=== PATIENT | female | born 1985 | race Caucasian/White ===

== ENCOUNTER 2019-06-15 02:34 | Inpatient (IN) | payer BC, SELFPAY ==
[2019-06-15] MEDS: Lactated Ringers 1,000 ML 125 ML IV (03:00)
[2019-06-15] MEDS: Penicillin G POT. 5,000,000 UNITS in Normal Saline 100 ML 200 UNITS IVPB (03:05)
[2019-06-15 03:12] LABS: HGB 13.3 g/dL (12.0-15.5); Mean Corp. HGB Concentration 34.1 g/dL (32.0-36.0); Mean Corpuscular Hemoglobin 30.2 pg (27.0-33.0); Mean Corpuscular Volume 88.6 fL (80-95); Mean Platelet Volume 10.9 fL (8.0-11.0); Platelet Count 175 x1000/uL (130-400); RBC Distribution Width 13.2 % (11.7-14.6); White Blood Cell Count 7.69 k/cumm (4.4-10.8)
--- NOTE | 2019-06-15 03:26 | W.PM.HP.N ---
History of Present Illness Dana is a 34 yo at term (40 1/7) in active labor. No ROM, TYLER, ABD pain, visual changes. Good FMVT. Ctx onset ~midnight. Hx of 7-8# with rapid labors Hx GBS pos with all prior pregnancies and the current one. Non smoker, good partner support no substance use/abuse Homemaker,Homeschooler labs wnl per records O: Vitals per flowsheet - wnl alert, comfortable using nitrous lungs - clear cv s- reg, no murmur abd - soft non-tender inbetween ctx - firm with ctx vtx by fahad cervix - stretchy 8cm, intact, 0 station, vtx nst - category 1 A: Term multip in active labor GBS pos - candidate for prophy abx Low risk for Shoulders Maternal and wellbeing P: Expect Initiate Pen G 5 million unit load and 2.5 million q4 hrs IV Nitrous per maternal request Routine EFM, vitals S. Genereaux PFSH Social History Smoking/Tobacco Use Status: Never Meds Home Medications and Allergies Home Medications Medication Instructions Recorded Confirmed Type PNV cmb#95-ferrous fumarate-FA 1 ea PO DAILY 01/12/15 01/18/17 History Allergies Allergy/AdvReac Type Severity Reaction Status Date / Time No Known Allergies Allergy Unverified 01/18/17 12:13 Results Labs Result diagrams: 06/15/19 02:50 Labs: Laboratory Results - last 24 hr 06/15/19 02:50 WBC 7.69 RBC 4.40 Hgb 13.3 Hct 39.0 MCV 88.6 MCH 30.2 MCHC 34.1 RDW 13.2 Plt Count 175 MPV 10.9
--- NOTE | 2019-06-15 03:35 | W.PM.HP.N ---
PFSH Social History Smoking/Tobacco Use Status: Never Meds Home Medications and Allergies Home Medications Medication Instructions Recorded Confirmed Type PNV cmb#95-ferrous fumarate-FA 1 ea PO DAILY 01/12/15 01/18/17 History Allergies Allergy/AdvReac Type Severity Reaction Status Date / Time No Known Allergies Allergy Unverified 01/18/17 12:13 Results Labs Result diagrams: 06/15/19 02:50 Labs: Laboratory Results - last 24 hr 06/15/19 02:50 WBC 7.69 RBC 4.40 Hgb 13.3 Hct 39.0 MCV 88.6 MCH 30.2 MCHC 34.1 RDW 13.2 Plt Count 175 MPV 10.9
[2019-06-15] MEDS: Ibuprofen 600 MG TAB PO ×2 (10:26→21:51)
[2019-06-15] MEDS: Acetaminophen 325 MG TAB 650 MG PO ×2 (10:26→21:52)
[2019-06-16 07:02] LABS: HCT 35.8 % (36.0-46.0); HGB 11.9 g/dL (12.0-15.5); Mean Corp. HGB Concentration 33.2 g/dL (32.0-36.0); Mean Corpuscular Hemoglobin 29.9 pg (27.0-33.0); Mean Corpuscular Volume 89.9 fL (80-95); Mean Platelet Volume 10.1 fL (8.0-11.0); Platelet Count 144 x1000/uL (130-400); RBC 3.98 m/cumm (4.00-5.20); RBC Distribution Width 13.3 % (11.7-14.6); White Blood Cell Count 9.02 k/cumm (4.4-10.8)
[2019-06-16] MEDS: Acetaminophen 325 MG TAB 650 MG PO (09:15)
[2019-06-16] MEDS: Ibuprofen 600 MG TAB PO (09:15)
--- NOTE | 2019-06-17 07:46 | W.PM.HP.N ---
History of Present Illness Brief D/C note: Slept well, showered, doing all self care nursing well, lochia decreasing, minimal cramping taking vits O: Firm fundus at umb no edema distally h/h reasonable alert, comfortable lungs - celar cv s- reg, no murmur A: Term s/p Rhogam dosed will f/u re possibel factor v leiden in mother f/u wrc in 48 hrs call or seek care if questioins or problems S. Genereaux [facility] Social History Smoking/Tobacco Use Status: Never Meds Home Medications and Allergies Home Medications Medication Instructions Recorded Confirmed Type PNV cmb#95-ferrous fumarate-FA 1 ea PO DAILY 01/12/15 01/18/17 History Allergies Allergy/AdvReac Type Severity Reaction Status Date / Time No Known Allergies Allergy Unverified 06/15/19 04:37 Results Labs Result diagrams: 06/16/19 06:40 Labs: Laboratory Results - last 24 hr 06/16/19 06:40 Patient ABO/Rh B Negative Unit Expiration Date 01/05/2021 Product Lot # [id number]
== END 2019-06-17 12:36 | disposition home or self-care (01) | DRG 807 ==
PROVIDERS: Admitting Provider Family Medicine; PCP Family Medicine; Visit Provider Family Medicine
DX: O48.0 Post-term pregnancy (principal); Z37.0 Single live birth; Z3A.40 40 weeks gestation of pregnancy; O99.824 Streptococcus B carrier state complicating childbirth; Z87.59 Personal history of other complications of pregnancy, childbirth and the puerperium; Z67.21 Type B blood, Rh negative; O26.893 Other specified pregnancy related conditions, third trimester; D75.89 Other specified diseases of blood and blood-forming organs
CPT/HCPCS: 36415; 85027; 85461; 86850; 86900; 86901; 90384; 99222; NC; 86870; J2540; J2790

== ENCOUNTER 2022-03-20 12:33 | Inpatient (IN) | payer MEDICAID, SELFPAY ==
[2022-03-20] VITALS (12 sets, daily range): BP systolic 106–147; BP diastolic 58–74; PULSE 77–107; RESP 16; TEMP 36.6–36.7
[2022-03-20 13:07] LABS: MCH 29.6 pg (27.0-33.0); MCHC 33.3 % (32.0-36.0); MCV 89 fL (80-95); MPV 10.8 fL (8.0-11.0); Platelet Count 155 10^3/uL (130-400); RBC 4.39 10^6/uL (3.93-5.22); RDW 13.1 % (11.7-14.6); RDW-SD 42.5 fL; WBC 8.82 10^3/uL (4.4-10.8)
--- NOTE | 2022-03-20 13:14 | W.PM.OBHPL1 ---
Date of service: 03/20/22 Time of Service: 13:14 Assessment and Plan Assessment and plan (1) : Status: Acute Assessment and plan: Admit for with expectant mgmt. Acceed to Ashlee's wish for no IV and no IV ABX for GBS prophy (2) Positive GBS test: Assessment and plan: as above - pt declines IV abx OB-HPI Labor/Delivery History of Present Illness Reason for Visit: pre KAMLA Chief Complaint: Uterine Contractions; Suspected Labor. Comments: Dana and Kraig present with uterine ctx - onset ~8 am. Intact membranes, good mvmt. No TYLER, swelling, questions. Slept well overnight. Confirmed prior conversations re opting out of IV abx for GBS prophy. Instead plans to stay for 48 hr rule out post delivery. History of Present Narrative: Low risk for shoulders. No GDM - following sugars at home PP <95. RH neg - received Rhogam @ 28 weeks and subsequent antibody titers were low and declining No Htn Chronic lower ext vericosities kept at bay with compression hose. PFSH All Active Problems (Updated 03/20/22 @ 13:25 by Sergio Turk) (Acute) Medical History (Updated 03/20/22 @ 13:25 by Sergio Turk) Positive GBS test Social History Smoking/Tobacco Use Status: Never Smoking risk assessment performed?: Yes Meds Allergies and Home Medications Allergies Allergy/AdvReac Type Severity Reaction Status Date / Time No Known Allergies Allergy Unverified 06/15/19 04:37 Home Medications Medication Instructions Recorded Confirmed Type vit no.95-ferrous 1 ea PO DAILY 01/12/15 01/18/17 History fumarate 28 mg-folic acid 800 mcg tablet Exam Detailed Labor and Delivery Exam Dilation: 6 station: -2 Cervix position: mid Joe Score: Cervical Points Exam 0 1 2 3 Dilation Closed 1-2cm 3-4 cm 5-6cm Effacement 0-30% 40-50% 60-70% 80% Consistency Firm Medium Soft Station -3 -2 -1,0 +1,+2 Position Posterior Mid Anterior Amniotic Membrane Status: Intact Contraction Frequency(min): 3 Fetus A Heart Rate Baseline: 130 Monitor Accelerations: 15 X 15 Monitor Decelerations: None Variability: Moderate (6-25 BPM) Presentation: Vertex Categories: Category I Est. Weight: 3400 kg Assessment Note: Category 1 strip Additional findings Additional findings: Bright, comfortable, alert, peaceful. lungs - clear CVS - reg, no tachy abd - gravid 39 cm, non-tender, ctx q 3-4 min mod ext - baseline varicosities Skin - clear Risk Assessment Risks Reviewed Risks Reviewed Upon Admission: Yes
[2022-03-20 13:29] LABS: Source Nasal/Nares
--- NOTE | 2022-03-20 13:44 | NUR.NOTE ---
Per conversation with provider Dr. Turk and patient, this nurse in room. Unknown GBS status. Patient declines IV, declines antibiotics understands with be here for 48 hours for baby oberservation.
--- NOTE | 2022-03-20 14:00 | W.PM.OBNL1 ---
Date of service: 03/20/22 Time of Service: 14:00 Objective Temp Pulse Resp BP 36.7 C 87 16 118/60 03/20/22 12:53 03/20/22 13:24 03/20/22 12:53 03/20/22 13:24 Laboratory Results WBC 8.82 10^3/uL (4.4-10.8) 03/20/22 12:55 RBC 4.39 10^6/uL (3.93-5.22) 03/20/22 12:55 Hgb 13.0 g/dL (11.2-15.7) 03/20/22 12:55 Hct 39.0 % (36.0-46.0) 03/20/22 12:55 MCV 89 fL (80-95) 03/20/22 12:55 MCH 29.6 pg (27.0-33.0) 03/20/22 12:55 MCHC 33.3 % (32.0-36.0) 03/20/22 12:55 RDW 13.1 % (11.7-14.6) 03/20/22 12:55 Plt Count 155 10^3/uL (130-400) 03/20/22 12:55 MPV 10.8 fL (8.0-11.0) 03/20/22 12:55 COVID-19 Source Nasal/Nares 03/20/22 13:00 Patient ABO/Rh B Negative 03/20/22 12:55 Antibody Screen POSITIVE 03/20/22 12:55 Subjective Interval history since last seen: Peaceful, focussed, mix of nitrous, up to BR, partner support allowing her to tolerate labor thus far. Intact membranes, good mvmt. Feeling some vag pressure. Good PO intake. O: 9 cm/90%/1+/vtx/bulging bag with ctx scant edema, non-tender abd Lab just called and shared her COVID screen came back positive A: Excellent cervical change and labor progress. Sx free COVID pos P: Expect Routine PPE precautions S. Genereaux Results Hemoglobin/Hematocrit: Hgb 13.0 g/dL (11.2-15.7) 03/20/22 12:55 Hct 39.0 % (36.0-46.0) 03/20/22 12:55
[2022-03-20 14:07] LABS: COVID-19 PCR POSITIVE (Negative)
--- NOTE | 2022-03-20 15:02 | OBVDS_ITS ---
Date of service: 03/20/22 Time of Service: 15:02 OB Labor/ Delivery Information Baby A Delivery Delivery Method: Spontaneaous Presentation: Cephalic Cephalic Position: Vertex Vertex Position: Left Occipital Anterior Cord Description-Baby A: 3 Vessels Amniotic Fluid: Clear Estimated Blood Loss: 250 cc Infant Complications: none Note: Maternal composure = impressive. SROM clear - began pushing - 10-15 min later crowned OA. Loose nuchal cord - reduced. Shoulders and Body rapidly followed [place], spont resp, vigorous - to mat abd Delayed cord clamping. Promptly firm fundus with easy delivery of intact placenta ~10 min post delivery. Intact, central 3 V cord. Inspection of perineum and urethral meatus yielded no trauma or lacs EBL ~250 cc [id number] right off and continuous. Providers Doctor: Sergio Turk Nurse: Bird Soria Other: Rahel Oliver Labor/Delivery Information Number of Babies in Womb: 1 Steroids Given: None Group Beta Strep: Not Done Blood Type: B- Varicella Immunity: Not Tested Shoulder Dystocia: No Stages of Labor Onset of Labor Date: 03/20/22 Onset of Labor Time: 08:00 ROM Baby A: 03/20/22 ROM Baby A: 14:38 Delivery Date-Baby A: 03/20/22 Delivery Time-Baby A: 14:40 Placenta Delivery Date-Baby A: 03/20/22 Placenta Delivery Time-Baby A: 14:46 Labor-Stage 3 Duration: 6 minutes Total Length of Labor-Baby A: 6 hours and 40 minutes Placenta Status: Delivered Baby A Infant Gender: Male Gestational Status: Term (39-41.6 wks) Gestational Age in Weeks/Days: 38 Weeks and 6 Days Score-1 Minute Interval(Baby A) Heart Rate-1 minute: 100 BPM or Greater Respiratory Effort- 1 minute: Spontaneous/Strong Cry Muscle Tone-1 minute: Active Movement Reflex Response-1 minute: Prompt Response Color-1 minute: Bluish Hands or Feet Total Score-1 minute: 9 Score-5 Minute Interval(Baby A) Heart Rate- 5 minute: 100 BPM or Greater Respiratory Effort-5 minute: Spontaneous/Strong Cry Muscle Tone-5 minute: Active Movement Reflex Response-5 minute: Prompt Response Color-5 minute: Bluish Hands or Feet Total Score- 5 minute: 9
--- NOTE | 2022-03-20 15:08 | HPE_ITS ---
Date of service: 03/20/22 Time of Service: 15:08 Assessment and Plan Assessment and plan (1) : Status: Acute Assessment and plan: Given likely GBS pos (not tested) will watch for 48hrs Maternal tested pos for COVID - another reason to watch closely Encourage/support Check blood type to know re maternal need for Rhogam Exam General Apperance Notable Details: Bright, pink, spont easy resp effort Lusty cry Lungs - clear CVS - reg, no murmur suckling at L breast abd - soft, non tender, nl umb insertion testes descended times two - nl male phallus skin - clear font open and flat, no over riding suture lines 9/9 Delivery Delivery Info Gestational Age in Weeks/Days: 38 Weeks and 6 Days Gestational Status: Term (39-41.6 wks) Infant Gender: Male Type of Delivery: Vaginal Delivery Date-Baby A: 03/20/22 Infant Delivery Time-Baby A: 14:40 Presentation: Cephalic Cephalic Position: Vertex Vertex Position: Left Occipital Anterior Breech Position: N/A Number of Cord Vessels: 3 Amniotic Fluid Color: Clear Born En Route: No Shoulder Dystocia: No Vacuum Assisted Delivery: N/A Forcep Assisted Delivery: N/A Delivery Outcome: Liveborn -1 Minute Interval Heart Rate-1 minute: 100 BPM or Greater Respiratory Effort- 1 minute: Spontaneous/Strong Cry Muscle Tone-1 minute: Active Movement Reflex Response-1 minute: Prompt Response Color-1 minute: Bluish Hands or Feet Total Score-1 minute: 9 -5 Minute Interval Heart Rate- 5 minute: 100 BPM or Greater Respiratory Effort-5 minute: Spontaneous/Strong Cry Muscle Tone-5 minute: Active Movement Reflex Response-5 minute: Prompt Response Color-5 minute: Bluish Hands or Feet Total Score- 5 minute: 9 Maternal History Maternal Medical History Maternal History Summary Note: Late to care (27 weeks) Diabetes: NEGATIVE FOR Hypertension: NEGATIVE FOR Heart disease: NEGATIVE FOR Auto-immune disorder: NEGATIVE FOR Kidney disease/UTI: NEGATIVE FOR Neurologic/epilepsy: NEGATIVE FOR Psychiatric: NEGATIVE FOR Depression/ depression: NEGATIVE FOR Hepatitis/liver disease: NEGATIVE FOR Varicosities/phlebitis: NEGATIVE FOR Thyroid dysfunction: NEGATIVE FOR Trauma/domestic violence: NEGATIVE FOR History of blood transfusions: NEGATIVE FOR D (Rh) Sensitized: NEGATIVE FOR Pulmonary (e.g.,TB,Asthma): NEGATIVE FOR Seasonal allergies: NEGATIVE FOR Drug/latex allergies/reactions: NEGATIVE FOR Breast: NEGATIVE FOR Vascular Physician surgery: NEGATIVE FOR Operations/hospitalizations: NEGATIVE FOR Anesthetic complications: NEGATIVE FOR History of abnormal pap: NEGATIVE FOR Uterine anomaly/yolanda: NEGATIVE FOR Infertility: NEGATIVE FOR Anti-retroviral treatment: NEGATIVE FOR Relevant family history: NEGATIVE FOR Genetic History Patients age 35 years or older as of [place]: Yes Thalassemia (Citizen Of [place], Danish, Mediterranean, or Black: No Congenital Heart Defect: No Neural Tube Defect (Meningomyelocele, Spina Bifida, or Ancen: No Down Syndrome: No Jose Miguel-Sachs (Ashkenazi Islam, Cajun, [place]an [place]): No Brad Disease (Ashkenazi Islam): No Familial Dysautonomia (Ashkenazi Islam): No Sickle Cell Disease or Trait (): No Muscular Dystrophy: No Cystic Fibrosis: No Delta's Chorea: No Mental Retardation/Autism: No Other inherited genetic or chromosomal disorder: No Maternal Metabolic Disorder (EG,TYPE 1 Diabetes, PKU): No Patient or baby's father had a child with defects: No Recurrent loss or a stillbirth: No Maternal Information Maternal History Age: 37 : 7 Para: 5 Expected Date of Delivery: 03/28/22 Number of Babies in Womb: 1 Gestational Age in Weeks/Days: 38 Weeks and 6 Days Infant Delivery Date-Baby A: 03/20/22 Maternal Labs Group Beta Strep Not Done Rubella Hepatitis B Hepatitis C Antibody Blood Type B- Antibody Screen HIV Syphillis Gonorrhea Chlamydia Varicella Immunity results in office along with all PN labs Labor/Delivery Information Labor Anesthesia: None Attempted: No Maternal Medications Steroids Given: None
[2022-03-20] MEDS: Dibucaine 1% 28 GM TUBE TP (16:17)
[2022-03-20] MEDS: Hamamelis Leaf/Glycerin 100 EACH BOX PR (16:18)
[2022-03-20] MEDS: Ibuprofen 600 MG TAB PO (16:19)
[2022-03-21 01:01] VITALS: BP 120/70; PULSE 82; RESP 17; TEMP 37.2; O2SAT 99
[2022-03-21] MEDS: Acetaminophen 325 MG TAB 650 MG PO ×2 (01:01→08:28)
[2022-03-21] MEDS: Ibuprofen 600 MG TAB PO ×2 (01:01→08:28)
[2022-03-21 08:47] VITALS: BP 125/74; PULSE 75; RESP 18; TEMP 36.4
--- NOTE | 2022-03-21 15:55 | W.PM.OBPNV1 ---
Date of service: 03/21/22 Time of Service: 15:56 Subjective Subjective Interval history: Off to terrific start. BF/suck/lathc all good. No Covid sx dec lochia showered, doing all self care no depression, anxiety Exam Physical Exam Vital signs: Temp Pulse Resp BP Pulse Ox 36.4 C L 75 18 125/74 99 03/21/22 08:47 03/21/22 08:47 03/21/22 08:47 03/21/22 08:47 03/21/22 01:01 Constitutional Comments: bright, alert, comfortable Firm fundus at umb scant edema distally - baseline lungs - clear CVS - reg, no murmur no breast tenderness Results Hemoglobin/Hematocrit: Hgb 13.0 g/dL (11.2-15.7) 03/20/22 12:55 Hct 39.0 % (36.0-46.0) 03/20/22 12:55 Abnormal Lab Findings: Abnormal Labs 03/20/22 13:00 SARS-CoV-2 (PCR) POSITIVE A* Additional Findings Results: plan: Cont BF support - d/c to home in 24 hrs when infant able (48 hr rule out) No COVID sx or issues Long discussion re Circ pros/cons - gram present - Dad weighted in yesterday Dana freely soigned consent form and will try to perform late morning 03/22
--- NOTE | 2022-03-21 16:02 | W.NBPROGRESS ---
Date of service: 03/21/22 Time of Service: 16:02 Subjective Note Off to terrific start with BF and suck/latch Parents planning Circ - ideally tomorrow when Jarett is here Weight Assessment Weight Change: weight 3430 g Weight 69.4 kg Exam General Apperance Notable Details: Bright, alert, eyes closed font open, soft, flat, nl sutres no jaundice nl breast buds strong suck, nl sae, grasp lungs - clear cvs - reg, no murmur abd - flat, soft, no masses, non tender neg hip click pinna - nl set intact sopft and hard palate nl fem pulses ,moving all 4 nl male genetalia - descended testes times two small stork bite post neck nl straight spine wt stable, patent anus, mec diapers, wet nappies need to get eye exam when open A: healthy male circ consent reviewd/counselling done - Mom freely signed no evidence GBS sepsis - stable exam and vitals P: Home 03/22 with circ prior cont BF support PKU done - further NB screene planned prior to d/c. S. Genereaux I&O Intake/Output Totals 24 Hours: 03/20/22 03/20/22 03/21/22 03/21/22 11:59 23:59 11:59 23:59 Output Total 500 / 500 800 / 800 Balance -500 / -500 -800 / -800 Output: Urine 500 / 500 800 / 800 Other: Urine Color Straw Yellow Urine Appearance Clear Urine Odor None Voiding Methods Toilet Weight 69.4 kg
[2022-03-21 21:14] VITALS: BP 97/60; PULSE 84; RESP 16; TEMP 36.6; O2SAT 97
[2022-03-22 07:40] VITALS: BP 96/55; PULSE 78; RESP 16; TEMP 36.8
--- NOTE | 2022-03-22 15:04 | W.PM.OBDISCH ---
Date of service: 03/22/22 Time of Service: 15:04 DS: Diagnosis Discharge Diagnosis (1) : Status: Acute (2) Lab test positive for detection of COVID-19 virus: Status: Acute Discharge Plan Disposition Patient Disposition: Home Condition: Good Discharge Details Reason For Visit: Labor Admit Date/Time: 03/20/22 12:33 Admit Provider: Michael Batista Attending Provider: Michael Batista Primary Care Provider: Sergio Turk Hospital Course Hospital Course: Dana presented in active labor. Delivered liveborn male via over intact perineum without complications. See delivery note for details. course was uneventful. She did note some varicosities that had thrombosed during . No edema. Varicosities are very superficial. Recommended warm compresses. She is eating and drinking well, mood is good. She was found to be positive on PCR for COVID 19. She was and remains asymptomatic. Home Meds and New Rx's Prescriptions: No Action PNV cmb#95-ferrous fumarate-FA 1 EACH tablet 1 ea PO DAILY Discharge Instructions Activity:: Activity as Tolerated Equipment/Supplies:: No Equipment Needed Diet:: As Tolerated Discharge Orders Discharge Orders: Discharge Order (Routine); Ordered 03/22/22 Ordered By: Sherrie Jauregui OB:DS Summary Summary Vaginal Delivery Method: Spontaneaous Episiotomy Description: None Laceration Description: None Laceration Extension: N/A Contraception Discussed Contraception Discussed: Yes Contraceptive Plan: Not planning to use, [place] Gender-Baby A: Male weight: 3430 g Status at Discharge Functional status at discharge: independent ambulation Overall status at discharge: patient is back to baseline Mental Status: mental status grossly normal Speech and Movement: speech and movement normal Mood: congruent mood Affect: normal affect Exam Physical Exam Vital signs: Temp Pulse Resp BP Pulse Ox 36.8 C 78 16 96/55 L 97 03/22/22 07:40 03/22/22 07:40 03/22/22 07:40 03/22/22 07:40 03/21/22 21:14 Constitutional Constitutional: no acute distress Respiratory Exam Respiratory Exam: Normal Fundal Exam Fundus: Below Umbilicus and Firm Extremities Exam Extremity Exam: Other (superficial varicosities with areas of firmness); negative Edema PFSH All Active Problems (Updated 03/22/22 @ 16:11 by Sherrie Jaurgeui) Lab test positive for detection of COVID-19 virus (Acute) [place] (Acute) (Acute) Medical History (Updated 03/22/22 @ 16:11 by Sherrie Jauregui) Positive GBS test Social History Smoking/Tobacco Use Status: Never Smoking risk assessment performed?: Yes Alcohol Intake: never Drug use: Never Substance use type: does not use History History 7 Para 5 Hx # Term Pregnancies Multiple births Hx # Pregnancies Ectopic pregnancies AB induced Hx Number of Living Children AB spontaneous DS: Data Vitals/I&O Vitals and I&O: Vital Signs Temperature 36.8 C 03/22/22 07:40 Pulse 78 03/22/22 07:40 Pulse Rhythm Regular 03/22/22 07:40 Respiratory Rate 16 03/22/22 07:40 Respiratory Depth Normal 03/21/22 20:04 Blood Pressure 96/55 L 03/22/22 07:40 Blood Pressure Mean 68 03/22/22 07:40 Pulse Oximetry 97 03/21/22 21:14 Oxygen Delivery Method Room Air 03/20/22 12:53 Oxygen Flow Rate 0 03/20/22 12:53 Pain Level 3 03/20/22 16:19 Intake & Output 03/21/22 03/22/22 03/22/22 23:59 11:59 23:59 Output Total 800 / 1600 Balance -800 / -1600 Output: Urine 800 / 1600 Data Completed and Pending Labs on day of discharge: Labs from last 24 hours 03/22/22 03/20/22 13:15 12:55 Patient ABO/Rh B Negative Antibody Screen POSITIVE Antibody Identification See Comments Screen Pending Rhogam Unit Number [id number] Unit Expiration Date 11/26/23 Product Lot # [id number]
== END 2022-03-22 18:05 | disposition home or self-care (01) | DRG 805 ==
PROVIDERS: Admitting Provider Family Medicine; PCP Family Medicine; Visit Provider Family Medicine
DX: O98.52 Other viral diseases complicating childbirth (principal); U07.1 COVID-19; Z37.0 Single live birth; O36.0930 Maternal care for other rhesus isoimmunization, third trimester, not applicable or unspecified; O99.824 Streptococcus B carrier state complicating childbirth; Z3A.38 38 weeks gestation of pregnancy
CPT/HCPCS: 36415; 85027; 85461; 86850; 86900; 86901; 87635; 90384; 86870; J2790

== ENCOUNTER 2024-08-08 04:52 | Inpatient (IN) | payer MEDICAID, SELFPAY ==
[2024-08-08] VITALS (25 sets, daily range): BP systolic 107–147; BP diastolic 55–83; PULSE 71–121; RESP 16–17; TEMP 35.7–37; O2SAT 98–99
--- NOTE | 2024-08-08 05:25 | HPE_ITS ---
Date of service: 08/08/24 Time of Service: 05:27 Assessment and Plan Assessment and plan (1) : Status: Acute Assessment and plan: Grand multip () at 39+1 EGA, here following SROM at home. complicated by somewhat limited care -- late presentation to care in 3rd trimester, declined anatomy screen. Reassuring /maternal status on presentation to L+D, without organized contractions. Given grand multip status and history of precipitous labor, as well as SROM, will admit to L+D for labor. - routine antepartum care - intermittent monitoring - Rh negative- will need PP RhIg. Hx anti-D antibodies PRIOR , neg antibody screen this - GBS unknown: Patient declines screen. Will plan on at minimum 48h monitoring following delivery - Counseled patient regarding increased risk of PPH given grand multip status and recommendation for IV in place/saline lock during labor. Patient declines at this time. - Intake labs drawn--as screens incomplete, will add on HIV, RPR, Hep B, Rubella screens as able (2) Grand multipara in labor: Status: Acute Assessment and plan: As above (3) Rh negative state in antepartum period: Status: Acute Assessment and plan: Received RhIg 06/13 in [place]. Antibody negative this . - Plan for RhIG OB-HPI Labor/Delivery History of Present Illness Reason for Visit: term labor Chief Complaint: Uterine Contractions; Suspected Rupture of Membranes , Associ ated Signs and Symptoms of Suspected ROM: Patient woke up around 1am as she had started leaking fluid, clear. Still leaking on arrival to +D. ; Maternal Discomfort , Associated Signs and Symptoms of Maternal Discomfort: Intermittent cramping, intermittent contractions.. Comments: 39 yo at 39+1 presenting to L+D following SROM. Last office check 08/07 AM; /-3. Per Dana, she felt comfortable at home yesterday without scattered cramping but no regular painful contractions. Went to sleep and woke up around 1am as her water had broken. Was still not having regular contractions; but started to feel more uncomfortable around 4AM and decided to come to the hospital with her , Jarett. Had scattered uncomfortable contractions in the car coming up. She has still been leaking fluid consistently. No VB. Regular FM. Current : Complicated by: late presentation to care 3T, mother is grand multip, Rh negative (received Rhogam 3T). Otherwise uncomplicated . Dating via LMP=3T US measurements in office; patient declined full anatomy scan this . Dana declined GBS screening during and anticipates at least 48h of monitoring in hospital following delivery. OB labs: blood type B negative, antibody negative (has a history of anti-D antibodies prior pregnancies, negative screen this ). 1HGTT WNL. GC/chlamydia and UCx neg. Most recent HIV, Hep B, Rubella and RPR screens were 2021 and WNL. Maternal medical history: Grand multip, history of anti-D antibodies as above, and Factor V Leiden deficiency (diagnosed via genetic screening after relatives diagnosed, no patient history of VTE). 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 Social History Smoking/Tobacco Use Status: Never Smoking risk assessment performed?: Yes Alcohol Intake: never Drug use: Never Substance use type: does not use Housing: house Do you feel safe at home: Yes Do you feel safe in your relationship?: Yes History History 8 Para 6 Hx # Term Pregnancies Multiple births Hx # Pregnancies Ectopic pregnancies AB induced Hx Number of Living Children AB spontaneous 1 Meds Allergies and Home Medications Allergies Allergy/AdvReac Type Severity Reaction Status Date / Time No Known Allergies Allergy Unverified 06/15/19 04:37 Home Medications ?Medication ?Instructions ?Recorded ?Confirmed ?Type vit no.95-ferrous 1 ea PO DAILY 01/12/15 03/20/22 History fumarate 28 mg-folic acid 800 mcg tablet Exam Physical Exam Vital Signs Reviewed: Yes Detailed Labor and Delivery Exam Joe Score: Cervical Points Exam 0 1 2 3 Dilation Closed 1-2cm 3-4 cm 5-6cm Effacement 0-30% 40-50% 60-70% 80% Consistency Firm Medium Soft Station -3 -2 -1,0 +1,+2 Position Posterior Mid Anterior Fetus A Heart Rate Baseline: 130 Monitor Accelerations: Present Monitor Decelerations: None Variability: Moderate (6-25 BPM) Presentation: Cephalic Categories: Category I Date of Membrane Rupture: 08/08/24 Time of Membrane Rupture: 01:00 HEENT Exam HEENT Exam: Normal Neck Exam Neck Exam: Normal Respiratory Exam Respiratory Exam: Normal Detail Cardiovascular Exam Comments: Extremities WWP, peripheral pulses intact. Abdominal Exam Abdominal Exam: Normal Skin Exam Skin Exam: Normal Neurological Exam Neurological Exam: Normal Results Results Group Beta Strep: Not Done Lab Results: Rh negative. Neg antibody screen this with history of anti-D antibodies in 2021 . Hep C negative, GC/chlamydia negative. Group B strep testing declined by patient. labs NOT screened with current include Hep B, Rubella, HIV, RPR (last screened 2021 WNL). Risk Assessment Risk for Shoulder Dystocia Increased Risk?: No Risk for Post- Hemorrhage Initial: POSITIVE FOR: Grand Multiparity At Risk?: Yes Risks Reviewed Risks Reviewed Upon Admission: Yes
[2024-08-08 05:27] LABS: HCT 34.3 % (36.0-46.0); HGB 11.4 g/dL (11.2-15.7); MCH 29.1 pg (27.0-33.0); MCHC 33.2 % (32.0-36.0); MCV 88 fL (80-95); MPV 10.9 fL (8.0-11.0); Platelet Count 172 10^3/uL (130-400); RBC 3.92 10^6/uL (3.93-5.22); RDW 13.2 % (11.7-14.6); RDW-SD 41.3 fL; WBC 7.58 10^3/uL (4.4-10.8)
--- NOTE | 2024-08-08 10:23 | W.PM.OBNL1 ---
Date of service: 08/08/24 Time of Service: 10:00 Contractions Monitor Mode: External (CTX irregular, q6-10 minutes) Intensity: Mild Fetus A Heart Rate Baseline: 130 Presentation: Cephalic Variability: Moderate (6-25 BPM) Categories: Category I Accelerations: Present Decelerations: None Amniotic Membrane Status: Ruptured Assessment and Plan Assessment and plan (1) Grand multipara in labor: Status: Acute Assessment and plan: Patient comfortable; reassuring monitoring; however without organized, painful contractions. Ruptured x 9 hours after SROM at home. -continue intermittent monitoring -encourage ambulation, position changes with nursing - S/P SROM; continue routine vital checks, monitor for fevers -discussed with patient that, if labor not progressing, we would need to consider augmentation--especially given presence of ruptured membranes. Patient prefers to defer augmentation for now if possible--but expresses understanding. (2) : Status: Acute (3) Rh negative state in antepartum period: Status: Acute Objective Abnormal lab results 08/08/24 Range/Units 05:11 RBC 3.92 L (3.93-5.22) 10^6/uL Hct 34.3 L (36.0-46.0) % Temp Pulse Resp BP Pulse Ox 36.6 C 85 17 133/71 98 08/08/24 04:58 08/08/24 08:59 08/08/24 04:58 08/08/24 08:59 08/08/24 04:58 Laboratory Results WBC 7.58 10^3/uL (4.4-10.8) 08/08/24 05:11 RBC 3.92 10^6/uL (3.93-5.22) L 08/08/24 05:11 Hgb 11.4 g/dL (11.2-15.7) 08/08/24 05:11 Hct 34.3 % (36.0-46.0) L 08/08/24 05:11 MCV 88 fL (80-95) 08/08/24 05:11 MCH 29.1 pg (27.0-33.0) 08/08/24 05:11 MCHC 33.2 % (32.0-36.0) 08/08/24 05:11 RDW 13.2 % (11.7-14.6) 08/08/24 05:11 Plt Count 172 10^3/uL (130-400) 08/08/24 05:11 MPV 10.9 fL (8.0-11.0) 08/08/24 05:11 ABO/Rh B Negative 08/08/24 05:11 Antibody Screen POSITIVE 08/08/24 05:11 Antibody Identification Anti-D 08/08/24 05:11 Objective Narrative Objective Narrative: Confirmed cephalic via bedside ultrasound. Subjective Interval history since last seen: Dana doing well. Still very comfortable--no more uncomfortable contractions. Still leaking fluid, clear. Slept this morning and now up, would like to shower and start walking, moving. Results Hemoglobin/Hematocrit: Hgb 11.4 g/dL (11.2-15.7) 08/08/24 05:11 Hct 34.3 % (36.0-46.0) L 08/08/24 05:11 Abnormal Lab Findings: Abnormal Labs 08/08/24 05:11 RBC 3.92 L Hct 34.3 L Ultrasound OB Ultrasound for presentation. Indication: Check position. Position: ROT. Presentation: Cephalic. Exam complete. Point of Care Ultrasound Note: Point of care ultrasound for position. Cephalic.
[2024-08-08] MEDS: Calcium Carbonate *TUMS* 500 MG CHEW 1000 MG PO ×2 (11:15→16:33)
--- NOTE | 2024-08-08 17:19 | W.PM.OBNL1 ---
Date of service: 08/08/24 Time of Service: 17:19 Pelvic Exam Dilation: 7 Effacement (%): 80 station: -3 Cervix Position: mid Consistency: soft Vaginal Exam Presentation: Cephalic Contractions Contraction Frequency(min): q3min Contraction Duration(sec): 60 Intensity: Mild/Moderate Fetus A Monitor: External (US) Heart Rate Baseline: 130 Variability: Moderate (6-25 BPM) Categories: Category I Accelerations: Present Decelerations: None Amniotic Membrane Status: Ruptured Assessment and Plan Assessment and plan (1) : Status: Acute Assessment and plan: 39yo at 39+1, admitted following SROM at home, spontaneous labor. Dana continues to progress albeit slowly; ruptured for more than 12 hrs at this time. Overall feeling quite comfortable but with intermittent strong contractions. Desires nitrous for intermittent use. -continue labor; after discussion with patient will continue to defer labor augmentation at this time. Continues to progress. -continue intermittent monitoring -nitrous PRN for contraction pain - grand multip; increased PPH risk - Rh negative; will need PP rhogam - GBS unknown; plan for 48h stay PP for monitoring (2) Grand multipara in labor: Status: Acute (3) Rh negative state in antepartum period: Status: Acute Objective Abnormal lab results 08/08/24 Range/Units 05:11 RBC 3.92 L (3.93-5.22) 10^6/uL Hct 34.3 L (36.0-46.0) % Temp Pulse Resp BP Pulse Ox 36.8 C 86 16 142/77 H 99 08/08/24 17:01 08/08/24 12:54 08/08/24 12:54 08/08/24 12:54 08/08/24 12:54 Laboratory Results WBC 7.58 10^3/uL (4.4-10.8) 08/08/24 05:11 RBC 3.92 10^6/uL (3.93-5.22) L 08/08/24 05:11 Hgb 11.4 g/dL (11.2-15.7) 08/08/24 05:11 Hct 34.3 % (36.0-46.0) L 08/08/24 05:11 MCV 88 fL (80-95) 08/08/24 05:11 MCH 29.1 pg (27.0-33.0) 08/08/24 05:11 MCHC 33.2 % (32.0-36.0) 08/08/24 05:11 RDW 13.2 % (11.7-14.6) 08/08/24 05:11 Plt Count 172 10^3/uL (130-400) 08/08/24 05:11 MPV 10.9 fL (8.0-11.0) 08/08/24 05:11 ABO/Rh B Negative 08/08/24 05:11 Antibody Screen POSITIVE 08/08/24 05:11 Antibody Identification Anti-D 08/08/24 05:11 Subjective Interval history since last seen: Ping feeling well. Contractions becoming a bit more regular, intermittently painful but overall still quite comfortable. Still intermittently leaking clear fluid. No fevers/chills/nausea. Intermittent reflux. Results Hemoglobin/Hematocrit: Hgb 11.4 g/dL (11.2-15.7) 08/08/24 05:11 Hct 34.3 % (36.0-46.0) L 08/08/24 05:11 Abnormal Lab Findings: Abnormal Labs 08/08/24 05:11 RBC 3.92 L Hct 34.3 L
--- NOTE | 2024-08-08 20:33 | W.PM.OBNL1 ---
Date of service: 08/08/24 Time of Service: 20:34 Pelvic Exam Dilation: 10 Effacement (%): 90 station: -2 Cervix Position: mid Consistency: soft Vaginal Exam Presentation: Cephalic Comments: 10cm but with right-sided lip Contractions Monitor Mode: External Contraction Frequency(min): q3 minutes Contraction Duration(sec): 60 seconds Intensity: Moderate/Strong Fetus A Monitor: External (US) Presentation: Cephalic Variability: Moderate (6-25 BPM) Categories: Category II Characteristics: Tachycardia Accelerations: Present Decelerations: None Amniotic Membrane Status: Ruptured Assessment Note: Patient with tracing showing tachycardia to 160s--rate improved with repositioning to 140s. Cat II --> improved to Cat I. Assessment and Plan Assessment and plan (1) Grand multipara in labor: Status: Acute Assessment and plan: Still progressing, however persistent cervical lip. Tried 1-2 pushes; did not reduce. - continue labor; try repositioning to R side - CEFM; will keep monitors on given tachycardia - continue nitrous for analgesia with contractions - Rh negative; will need PP RhIg - Increased PPH risk; increased shoulder dystocia risks. Huddled/reviewed with staff. (2) : Status: Acute (3) Rh negative state in antepartum period: Status: Acute (4) Anti-D antibodies present: Status: Acute Objective Abnormal lab results 08/08/24 Range/Units 05:11 RBC 3.92 L (3.93-5.22) 10^6/uL Hct 34.3 L (36.0-46.0) % Temp Pulse Resp BP Pulse Ox 36.8 C 111 H 17 117/65 99 08/08/24 18:09 08/08/24 20:14 08/08/24 18:09 08/08/24 20:14 08/08/24 18:09 Laboratory Results WBC 7.58 10^3/uL (4.4-10.8) 08/08/24 05:11 RBC 3.92 10^6/uL (3.93-5.22) L 08/08/24 05:11 Hgb 11.4 g/dL (11.2-15.7) 08/08/24 05:11 Hct 34.3 % (36.0-46.0) L 08/08/24 05:11 MCV 88 fL (80-95) 08/08/24 05:11 MCH 29.1 pg (27.0-33.0) 08/08/24 05:11 MCHC 33.2 % (32.0-36.0) 08/08/24 05:11 RDW 13.2 % (11.7-14.6) 08/08/24 05:11 Plt Count 172 10^3/uL (130-400) 08/08/24 05:11 MPV 10.9 fL (8.0-11.0) 08/08/24 05:11 ABO/Rh B Negative 08/08/24 05:11 Antibody Screen POSITIVE 08/08/24 05:11 Antibody Identification Anti-D 08/08/24 05:11 Subjective Interval history since last seen: Patient feeling more pressure--wants to push. More uncomfortable with contractions. Results Hemoglobin/Hematocrit: Hgb 11.4 g/dL (11.2-15.7) 08/08/24 05:11 Hct 34.3 % (36.0-46.0) L 08/08/24 05:11 Abnormal Lab Findings: Abnormal Labs 08/08/24 05:11 RBC 3.92 L Hct 34.3 L
[2024-08-08] MEDS: Oxytocin 10 UNITS/ML VIAL IM (20:40)
--- NOTE | 2024-08-08 21:19 | W.OBDELIVERY ---
Date of service: 08/08/24 Time of Service: 21:19 OB Labor/ Delivery Information Baby A Delivery Delivery Method: Spontaneaous Presentation: Cephalic Cephalic Position: Vertex Vertex Position: Left Occipital Anterior Cord Description-Baby A: 3 Vessels Amniotic Fluid: Clear Estimated Blood Loss: 200 cc Delivery Outcome: Liveborn Infant Transferred: Remains with Mother Providers Doctor: Nayeli Anthony Gyroscope Technician: Nayeli Anthony Nurse: Rahel Rivers Nurse: Aleksandra Nuñez Labor/Delivery Information Number of Babies in Womb: 1 Steroids Given: None Reason Steroids Not Administered: Indication Group Beta Strep: Not Done Antibiotics Administered: No Blood Type: B- Varicella Immunity: Not Tested Shoulder Dystocia: No Stages of Labor Onset of Labor Date: 08/08/24 Onset of Labor Time: 01:00 Complete Dilatation Date: 08/08/24 Complete Dilatation Time: 20:30 Labor - Stage 1 Duration: 19 hours and 30 minutes ROM Baby A: 08/08/24 ROM Baby A: 18:04 ROM Total Time- Baby A: [id number] Infant Delivery Date-Baby A: 08/08/24 Infant Delivery Time-Baby A: 20:36 Labor Stage 2 Duration: 6 minutes Placenta Delivery Date-Baby A: 08/08/24 Placenta Delivery Time-Baby A: 20:53 Labor-Stage 3 Duration: 17 minutes Total Length of Labor-Baby A: 19 hours and 36 minutes Placenta Status: Delivered Baby A Infant Gender: Female Gestational Status: Term (39-41.6 wks) Gestational Age in Weeks/Days: 39 Weeks and 1 Days Length-Baby A: 52.07 cm Score-1 Minute Interval(Baby A) Heart Rate-1 minute: 100 BPM or Greater Respiratory Effort- 1 minute: Spontaneous/Strong Cry Muscle Tone-1 minute: Active Movement Reflex Response-1 minute: Prompt Response Color-1 minute: Bluish Hands or Feet Total Score-1 minute: 9 Score-5 Minute Interval(Baby A) Heart Rate- 5 minute: 100 BPM or Greater Respiratory Effort-5 minute: Spontaneous/Strong Cry Muscle Tone-5 minute: Active Movement Reflex Response-5 minute: Prompt Response Color-5 minute: Bluish Hands or Feet Total Score- 5 minute: 9 Note: At 2029 this now delivered a vigorous female via . [place] delivered spontaneously, direct OA, with minimal pushing--shoulders delivered without difficulty, spontaneously, no nuchal cord. IM pitocin 10U delivered to patient for PPH prophylaxis. Vigorous female, APGARs 9/9, weighing 7lb 10 oz/3460g. After delayed cord clamping, cord cut and delivered to mom for skin to skin. Following uterine massage and gentle cord traction, placenta delivered spontaneously at 2053. Placenta intact, with 3 vessel cord. No lacerations requiring repair. EBL 200. Mom and baby recovering well following delivery. Routine care: - acetaminophen, ibuprofen PRN for analgesia - monitoring for PPH; at increased risk given multiparity - will need PP RhIg - Plan for minimum 48h stay for monitoring given GBS unknown
[2024-08-08] MEDS: Acetaminophen 500 MG TAB 1000 MG PO (21:36)
[2024-08-09 00:45] VITALS: BP 116/67; PULSE 85; RESP 16; TEMP 37; O2SAT 97
[2024-08-09] MEDS: Ibuprofen 600 MG TAB PO ×3 (00:53→23:49)
[2024-08-09] MEDS: Acetaminophen 500 MG TAB 1000 MG PO ×2 (05:39→15:56)
[2024-08-09 07:12] LABS: Abs Immature Grans 0.07 10^3/uL (0.0-0.06); Absolute Basophil Count 0.02 10^3/uL (0.0-0.2); Absolute Eosinophil Count 0.06 10^3/uL (0.0-0.7); Absolute Monocyte Count 1.12 10^3/uL (0.1-0.8); Absolute Neutrophil Count 6.83 10^3/uL (1.2-6.7); Basophils % 0.2 %; Eosinophils % 0.6 %; HCT 35.9 % (36.0-46.0); HGB 11.9 g/dL (11.2-15.7); Immature Grans % 0.7 %; Lymphocytes % 22.1 %; MCH 28.9 pg (27.0-33.0); MCHC 33.1 % (32.0-36.0); MCV 87 fL (80-95); Monocytes % 10.8 %; Neutrophils % 65.6 %; Platelet Count 192 10^3/uL (130-400); RBC 4.12 10^6/uL (3.93-5.22); RDW 13.1 % (11.7-14.6); RDW-SD 40.9 fL
[2024-08-09] MEDS: Hamamelis Leaf/Glycerin 100 EACH BOX PR (08:29)
[2024-08-09] MEDS: Docusate Sodium 100 MG CAP PO (08:30)
[2024-08-09 08:33] VITALS: BP 116/77; PULSE 82; RESP 17; TEMP 36.6; O2SAT 99
[2024-08-09 15:13] VITALS: BP 118/72; PULSE 88; RESP 16; TEMP 36.8
--- NOTE | 2024-08-09 18:18 | W.PM.OBPNV1 ---
Date of service: 08/09/24 Time of Service: 18:18 Assessment and Plan Assessment and plan (1) care following vaginal delivery: Status: Acute Assessment and plan: 39yo now ~22 hours following at 39+1 EGA. Mom and baby recovering well. Dana feeling well with adequate pain management. Appropriate Hgb drop on recheck today following minimal EBL. We will continue routine care, as below: - acetaminophen, ibuprofen PRN for pain - encourage ambulation - regular diet as tolerated - support - Completed pending screens this AM which are pending; follow up results - GBS unknown: plan for inpatient stay for ~48hours for observation - control: Discussed. Defers assistance with this at this time. (2) Grand multipara: Status: Acute Subjective Subjective Interval history: Dana doing well. Ambulating well, no dizziness, pain well controlled. Lochia minimal. Exclusively which has been going well with baby. Was able to rest a bit today; family/children came to meet which went well. Dana still anticipating staying roughly 48h following delivery but hopes to go home tomorrow afternoon/evening. No concerns from nursing. Baby Rh negative on cord screen. Patient comments: No complaints, Pain well controlled, Tolerating diet and Flatus present [place] baby status: Doing well and Nursing well [place] feeding status: Exclusively breast feeding Exam Physical Exam Vital signs: Temp Pulse Resp BP Pulse Ox 36.8 C 88 16 118/72 99 08/09/24 15:13 08/09/24 15:13 08/09/24 15:13 08/09/24 15:13 08/09/24 08:33 Constitutional Constitutional: no acute distress HEENT Exam HEENT Exam: Normal Detailed HEENT Exam Head: Present normocephalic and atraumatic Eye: Present EOMI and PERRL ENT: Present mucous membranes moist Neck Exam Neck Exam: Normal Respiratory Exam Respiratory Exam: Normal Cardiovascular Exam Cardiovascular Exam: Normal Detail Cardiovascular Exam Cardiovascular: Present RRR, S1 and S2 Abdominal Exam Comments: Soft, appropriately tender to palpation. Fundal Exam Comment: Fundus firm, below umbilicus. Extremities Exam Comment: WWP. No calf tenderness. Skin Exam Skin Exam: Normal Neurological Exam Neurological Exam: Normal Results Hemoglobin/Hematocrit: Hgb 11.9 g/dL (11.2-15.7) 08/09/24 06:15 Hct 35.9 % (36.0-46.0) L 08/09/24 06:15 Abnormal Lab Findings: Abnormal Labs 08/08/24 08/09/24 05:11 06:15 RBC 3.92 L Hct 34.3 L 35.9 L Absolute Neutrophils 6.83 H Absolute Monocytes 1.12 H
[2024-08-09 19:58] VITALS: BP 114/70; PULSE 78; RESP 16; TEMP 36.8; O2SAT 98
[2024-08-10] MEDS: Docusate Sodium 100 MG CAP PO (08:01)
[2024-08-10 08:51] LABS: Hepatitis B Surface Ag Negative (Negative)
[2024-08-10 09:24] LABS: HIV-1/2 Ag & Ab Screen Negative (Negative)
[2024-08-10 10:39] LABS: Syphilis Serology (RPR) Negative (Negative)
[2024-08-10 10:46] LABS: Rubella IgG Ab (UVM) Positive (See Note); Varicella IgG Antibody Positive (See Note)
--- NOTE | 2024-08-10 19:01 | DSE_ITS ---
Date of service: 08/10/24 Time of Service: 19:02 DS: Diagnosis Discharge Diagnosis (1) care following vaginal delivery: Status: Acute Asessment and Plan: Dana recovering well following uncomplicated . Pain well managed with minimal analgesics ; tolerating regular diet, ambulating without difficulty; going well; mom and baby recovering well and appropriate for discharge. We will plan for discharge to home this evening with routine follow up with our office. - 6 week follow up with [facility]; PCP Leighton Turk (or sooner PRN) - pain management: OTC acetaminophen, ibuprofen PRN at home - continue PNV while - Contraception: discussed. Defers assistance with this for now. - Exclusive , going well. Declines breast pump. - Routine activity restrictions; gradual return to activity as tolerated; avoid vaginal intercourse until PP check at 6 weeks Discharged to home with 08/10/2024. (2) Grand multipara: Status: Acute Discharge Plan Disposition Patient Disposition: Home Condition: Good Discharge Details Reason For Visit: term labor Admit Date/Time: 08/08/24 04:52 Admit Provider: Nayeli Anthony Attending Provider: Nayeli Anthony Primary Care Provider: Sergio Turk Hospital Course Hospital Course: 39 yo now who delivered at term (39+1) after presenting to the hospital following SROM at home 08/08, in labor. complicated by late presentation to care in ; without formal anatomy scan and somewhat limited screening; GBS unknown and deferred antibiotics for prophylaxis. Otherwise uncomplicated . Uncomplicated labor course; gradual progression of spontaneous labor and delivered evening of 08/08/24. No complications during delivery; minimal EBL and with unremarkable course. Exclusive . Routine care. We did complete remainder of patient's screens prior to discharge including HIV, Hep B, RPR, varicella and rubella titers, all of which were WNL. Discharged to home with 08/10/2024. Home Meds and New Rx's Prescriptions: Continued PNV cmb#[id number]-ferrous fumarate-FA 1 EACH tablet 1 ea PO DAILY Discharge Instructions Instructions: What to Watch for After You Have a Baby, Taking Care of Yourself After You Have a Baby Activity:: Activity as Tolerated Equipment/Supplies:: No Equipment Needed Diet:: Normal Diet Discharge Orders Discharge Orders: Discharge Order (Routine); Ordered 08/10/24 Ordered By: Nayeli Anthony Discharge Data Discharge Date/Time-TO BE ENTERED AT DEPARTURE: 08/10/24 18:57 OB:DS Summary Summary Vaginal Delivery Method: Spontaneaous Episiotomy Description: None Laceration Description: None Laceration Extension: N/A Contraception Discussed Contraception Discussed: Yes, [place] Infant Gender-Baby A: Female weight: 3460 g Status at Discharge Functional status at discharge: independent ambulation Overall status at discharge: patient is progressing back to baseline Mental Status: mental status grossly normal Speech and Movement: speech and movement normal Mood: congruent mood Affect: normal affect Time Spent with Patient providing and/or coordinating discharge services: Greater than 30 minutes Quality:SDOH Health Related Social Needs: No Data to Display Hospital Course 39 yo now who delivered at term (39+1) after presenting to the hospital following SROM at home 08/08, in labor. complicated by late presentation to care in ; without formal anatomy scan and somewhat limited screening; GBS unknown and deferred antibiotics for prophylaxis. Otherwise uncomplicated . Uncomplicated labor course; gradual progression of spontaneous labor and delivered evening of 08/08/24. No complications during delivery; minimal EBL and with unremarkable course. Exclusive . Routine care. We did complete remainder of patient's screens prior to discharge including HIV, Hep B, RPR, varicella and rubella titers, all of which were WNL. Discharged to home with 08/10/2024. Exam Physical Exam Vital signs: Temp Pulse Resp BP Pulse Ox 36.8 C 78 16 114/70 98 08/09/24 19:58 08/09/24 19:58 08/09/24 19:58 08/09/24 19:58 08/09/24 19:58 Constitutional Constitutional: no acute distress HEENT Exam HEENT Exam: Normal Neck Exam Neck Exam: Normal Detailed Respiratory Exam Respiratory: Present CTA bilaterally Cardiovascular Exam Cardiovascular Exam: Normal Abdominal Exam Comments: Soft, appropriately TTP, uterus firm and below umbilicus Fundal Exam Fundus: Below Umbilicus and Firm Extremities Exam Extremity Exam: Normal Comment: WWP; minimal edema, no calf tenderness Neurological Exam Neurological Exam: Normal PFSH All Active Problems (Updated 08/09/24 @ 18:26 by Nayeli Anthony MD) care following vaginal delivery (Acute) Grand multipara (Acute) Rh negative state in antepartum period (Acute) Anti-D antibodies present (Acute) Medical History (Updated 08/09/24 @ 18:26 by Nayeli Anthony MD) Grand multipara in labor 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 Social History Smoking/Tobacco Use Status: Never Smoking risk assessment performed?: Yes Alcohol Intake: never Drug use: Never Substance use type: does not use Housing: house Do you feel safe at home: Yes Do you feel safe in your relationship?: Yes History History 8 Para 6 Hx # Term Pregnancies Multiple births Hx # Pregnancies Ectopic pregnancies AB induced Hx Number of Living Children AB spontaneous 1 DS: Data Vitals/I&O Vitals and I&O: Vital Signs Temperature 36.8 C 08/09/24 19:58 Temperature Source Oral 08/09/24 19:58 Pulse 78 08/09/24 19:58 Pulse Rhythm Regular 08/09/24 19:58 Respiratory Rate 16 08/09/24 19:58 Respiratory Depth Normal 08/09/24 19:58 Blood Pressure 114/70 08/09/24 19:58 Blood Pressure Mean 84 08/09/24 19:58 Pulse Oximetry 98 08/09/24 19:58 Oxygen Delivery Method Room Air 08/08/24 04:58 Oxygen Flow Rate 0 08/08/24 04:58 Pain Level 1 08/09/24 19:58 Comment patient back in bed after voiding. 08/08/24 23:45 Intake & Output 08/09/24 08/10/24 08/10/24 23:59 11:59 23:59 Other: Urine Color Yellow Urine Appearance Clear Urine Odor None Data Completed and Pending Labs on day of discharge: Labs from last 24 hours 08/09/24 06:15 Syphilis Serology Negative Hep Bs Antigen Negative HIV 1&2 Ag/Ab, 4th Gen Negative Rubella IgG Antibody Positive VZV IgG Antibody Positive
== END 2024-08-10 19:10 | disposition home or self-care (01) | DRG 806 ==
PROVIDERS: Admitting Provider Student in an Organized Health Care Education/Training Program; PCP Family Medicine; Visit Provider Student in an Organized Health Care Education/Training Program
DX: O26.893 Other specified pregnancy related conditions, third trimester (principal); D68.51 Activated protein C resistance; Z37.0 Single live birth; O99.12 Other diseases of the blood and blood-forming organs and certain disorders involving the immune mechanism complicating childbirth; Z67.91 Unspecified blood type, Rh negative; Z64.1 Problems related to multiparity; Z3A.39 39 weeks gestation of pregnancy
CPT/HCPCS: 36415; 85027; 86787; 86850; 86900; 86901; 87340; 87389; 85025; 86592; 86762; 86870; J2590